=== PATIENT | male | born 2000 | race Asian ===

== ENCOUNTER 2024-09-30 08:57 | Emergency (ER) | payer OTHER, SELFPAY ==
[2024-09-30 09:03] VITALS: PULSE 84; RESP 18; O2SAT 98
[2024-09-30 09:09] VITALS: BP 149/96; PULSE 75; RESP 18; TEMP 36.7; O2SAT 97; BMI 28.5
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
[2024-09-30] MEDS: HYDROcodone/APAP 5/325 TABLET 1 TAB PO (09:49)
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
== END 2024-09-30 12:17 | disposition home or self-care (01) ==
PROVIDERS: Emergency Provider Emergency Medicine
DX: S13.4XXA Sprain of ligaments of cervical spine, initial encounter (principal); V89.2XXA Person injured in unspecified motor-vehicle accident, traffic, initial encounter
CPT/HCPCS: 70450; 71250; 72125; 74176; 99284; A9270